=== PATIENT | female | born 1980 | race African-American/Black ===

== ENCOUNTER 2020-10-31 15:33 | Emergency (ER) | payer SELFPAY ==
[~2020-10-31] VITALS: Ht 170.2 cm; Wt 111.9 kg
[2020-10-31] MEDS: DEXAMETHASONE SOD PHOS 20 MG/5 ML VIAL. PO ONE (16:22)
--- NOTE | 2020-10-31 16:26 | ED.ADGEN ---
Past Medical History Past Medical History: No Pertinent History Past Surgical History: No Surgical History Smoking Status: Current Some Day Smoker Alcohol Use: Occasionally Drug Use: None General Adult EDM: Chief Complaint: SKIN PROBLEM HPI: HPI: Patient is a 39 year old AA female who presents emergency department with complaints of itching and hives all over since yesterday. She was seen at urgent care yesterday and prescribed a 3-day dose of steroids. Patient reports she is taken prednisone and Benadryl today but her hives persist. Initially the patient thought it was due to some new laundry detergent that she used, patient states today she is wearing clothes that have not been washed in the new laundry detergent and she continues to have problems. She denies any difficulty swallowing, sore throat, cough, shortness of breath, sneezing, wheezing, nausea, vomiting, diarrhea, cough, body aches, fatigue, or fever. Patient states she had been taking a seamoss supplement for weight loss for about the last week and questions if that could be causing her hives. She currently denies any pain. Review of Systems: Review of Systems: Complete ROS is negative unless otherwise noted in HPI. Allergies: Allergies: Allergies Coded Allergies Type Severity Reaction Last Updated Verified Iodinated Contrast Media Allergy Intermediate hives 10/31/20 Yes latex Allergy Intermediate hives 10/31/20 Yes Physical Exam: PE: See Above Constitutional: Well developed, well nourished, no acute distress, non-toxic appearance, obese. [] HENT: Normocephalic, atraumatic, bilateral external ears normal, nose normal. [] Eyes: PERRLA, EOMI, conjunctiva normal, no discharge. [] Neck: Normal range of motion, no stridor. [] Cardiovascular:Heart rate regular rhythm Lungs & Thorax: Respirations even and unlabored, no retractions, no respiratory distress, lungs CTA, no wheezing Skin: Warm, dry; scattered patches of slightly elevated, itchy, red skin consistent with urticaria to patient's extremities x4, and trunk; no rash on patient's face Extremities: No cyanosis, ROM intact, no edema. [] Neurologic: Alert and oriented X 3, no focal deficits noted. [] Psychologic: Affect normal, judgement normal, mood normal. []] Current Patient Data: Vital Signs: Vital Signs Date Time Temp Pulse Resp B/P (MAP) Pulse Ox O2 Delivery O2 Flow Rate FiO2 10/31/20 15:40 98.3 102 18 161/88 (112) 99 Room Air 98.3 EKG: EKG: [] Heart Score: C/O Chest Pain: No Risk Scores: Score 0 - 3: 2.5% MACE over next 6 weeks - Discharge Home Score 4 - 6: 20.3% MACE over next 6 weeks - Admit for Clinical Observation Score 7 - 10: 72.7% MACE over next 6 weeks - Early Invasive Strategies Radiology/Procedures: Radiology/Procedures: [] Course & Med Decision Making: Course & Med Decision Making Pertinent Labs and Imaging studies reviewed. (See chart for details) [] Dragon Disclaimer: Dragon Disclaimer: This electronic medical record was generated, in whole or in part, using a voice recognition dictation system. Departure Departure Impression: Primary Impression: Acute urticaria Disposition: HOME / SELF CARE / HOMELESS Condition: STABLE Referrals: NO PCP (PCP) Patient Instructions: Guilherme, [id number] Additional Instructions: Stop taking the sea dillon supplement that you have been taking for weight loss. Recommend that you purchase an [id number] antihistamine such as Zyrtec (cetirizine), Kylie (fexofenadine), or Claritin (loratadine) at night. Finish the steroid that was prescribed at urgent care as instructed. You can take Benadryl every 6 hours as needed for itching. Follow-up with your primary care doctor next week, return to the ER if your symptoms worsen or fever develops. IVANA GOODWIN APRN Oct 31, 2020 16:26
[2020-10-31 16:33] VITALS: BP 156/76
== END 2020-10-31 16:33 | disposition home or self-care (01) ==
LOC: ER 15:33
DX: L50.8 Other urticaria (principal); L29.9 Pruritus, unspecified; Z87.891 Personal history of nicotine dependence; Z91.040 Latex allergy status; Z91.041 Radiographic dye allergy status
CPT/HCPCS: 99283; J1100

== ENCOUNTER 2021-01-28 05:45 | Emergency (ER) | payer SELFPAY ==
[~2021-01-28] VITALS: Ht 170.2 cm; Wt 113.6 kg
[2021-01-28 06:54] VITALS: BP 137/79
[2021-01-28] MEDS ORDERED: CLIN300C9 PO (06:55)
[2021-01-28] MEDS ORDERED: OXYC1TAB15 PO (06:55)
--- NOTE | 2021-01-28 06:56 | ED.ADGEN ---
Past Medical History Past Medical History: No Pertinent History Past Surgical History: No Surgical History Smoking Status: Current Some Day Smoker Alcohol Use: Occasionally Drug Use: None General Adult EDM: Chief Complaint: SKIN RASH/ABSCESS HPI: HPI: Patient is a 40 year old [f__sex] who presents with [] Review of Systems: Review of Systems: Constitutional: Denies fever or chills. [] Eyes: Denies change in visual acuity. [] HENT: Denies nasal congestion or sore throat. [] Respiratory: Denies cough or shortness of breath. [] Cardiovascular: Denies chest pain or edema. [] GI: Denies abdominal pain, nausea, vomiting, bloody stools or diarrhea. [] : Denies dysuria. [] Musculoskeletal: Denies back pain or joint pain. [] Integument: Denies rash. [] Neurologic: Denies headache, focal weakness or sensory changes. [] Endocrine: Denies polyuria or polydipsia. [] Lymphatic: Denies swollen glands. [] Psychiatric: Denies depression or anxiety. [] Current Medications: Current Medications Medications (Trade) Dose Ordered Sig/Taya Start Time Stop Time Status Last Admin Dose Admin Clindamycin HCl (Cleocin) 300 mg 1X ONCE 01/28/21 07:00 01/28/21 07:01 UNV Oxycodone/ Acetaminophen (Percocet 5/325) 1 tab 1X ONCE 01/28/21 07:00 01/28/21 07:01 UNV Allergies: Allergies: Allergies Coded Allergies Type Severity Reaction Last Updated Verified Iodinated Contrast Media Allergy Intermediate hives 10/31/20 Yes latex Allergy Intermediate hives 10/31/20 Yes Physical Exam: PE: Constitutional: Well developed, well nourished, no acute distress, non-toxic appearance. [] HENT: Normocephalic, atraumatic, bilateral external ears normal, oropharynx moist, no oral exudates, nose normal. [] Eyes: PERRLA, EOMI, conjunctiva normal, no discharge. [] Neck: Normal range of motion, no tenderness, supple, no stridor. [] Cardiovascular:Heart rate regular rhythm, no murmur [] Lungs & Thorax: Bilateral breath sounds clear to auscultation [] Abdomen: Bowel sounds normal, soft, no tenderness, no masses, no pulsatile masses. [] Skin: Warm, dry, no erythema, no rash. [] Back: No tenderness, no CVA tenderness. [] Extremities: No tenderness, no cyanosis, no clubbing, ROM intact, no edema. [] Neurologic: Alert and oriented X 3, normal motor function, normal sensory f unction, no focal deficits noted. [] Psychologic: Affect normal, judgement normal, mood normal. [] Current Patient Data: Vital Signs: Vital Signs Date Time Temp Pulse Resp B/P (MAP) Pulse Ox O2 Delivery O2 Flow Rate FiO2 01/28/21 05:50 98.7 95 18 167/85 (102) 100 Room Air 98.7 EKG: EKG: [] Heart Score: Risk Factors: Risk Factors: DM, Current or recent (<one month) smoker, HTN, HLP, family history of CAD, obesity. Risk Scores: Score 0 - 3: 2.5% MACE over next 6 weeks - Discharge Home Score 4 - 6: 20.3% MACE over next 6 weeks - Admit for Clinical Observation Score 7 - 10: 72.7% MACE over next 6 weeks - Early Invasive Strategies Radiology/Procedures: Radiology/Procedures: [] Course & Med Decision Making: Course & Med Decision Making Pertinent Labs and Imaging studies reviewed. (See chart for details) [] Dragon Disclaimer: Dragon Disclaimer: This electronic medical record was generated, in whole or in part, using a voice recognition dictation system. Departure Departure Impression: Primary Impression: Cellulitis of labia majora Disposition: HOME / SELF CARE / HOMELESS Condition: STABLE Referrals: NO PCP (PCP) Patient Instructions: Abscess, Perineal, Cellulitis Scripts Oxycodone/Apap 5-325 (PERCOCET 5-325 MG TABLET ) 1 Each Tablet 1 TAB PO PRN Q6HRS PRN for PAIN, #8 TAB 0 Refills Prov: CRISTIAN BOOGIE MD 01/28/21 Clindamycin Hcl (CLINDAMYCIN HCL) 300 Mg Capsule 1 CAP PO TID, #21 CAP Prov: CRISTIAN BOOGIE MD 01/28/21 CRISTIAN BOOGIE MD Jan 28, 2021 06:56
[2021-01-28] MEDS ORDERED: oxyCODONE/APAP 5/325 1 TAB TABLET PO ONE (07:30)
[2021-01-28] MEDS ORDERED: CLINDAMYCIN HCL 150 MG CAPSULE. PO ONE (07:30)
== END 2021-01-28 07:11 | disposition home or self-care (01) ==
LOC: ER 05:45
DX: N76.2 Acute vulvitis (principal); F17.200 Nicotine dependence, unspecified, uncomplicated; Z91.041 Radiographic dye allergy status; Z91.040 Latex allergy status
CPT/HCPCS: 99283

== ENCOUNTER 2021-05-08 18:48 | Emergency (ER) | payer BC ==
[~2021-05-08] VITALS: Ht 170.2 cm; Wt 107.0 kg
[~2021-05-08 18:48] MED LIST: CLIN-94 PO; OXYC1TAB15 PO
[2021-05-08 19:59] LABS: BILIRUBIN,URINE NEGATIVE (NEG); CLARITY,URINE CLEAR; COLOR,URINE YELLOW; NITRITE,URINE NEGATIVE (NEG); PH,URINE 5.5 (<5.0-8.0); PROTEIN,URINE NEGATIVE (NEG-TRACE); UROBILINOGEN,URINE 0.2 mg/dL (0.2 mg/dL)
--- NOTE | 2021-05-08 20:04 | RAD ---
EXAMINATION: CT LUMBAR SPINE WO, 05/08/2021 7:30 PM CLINICAL INDICATION: Pain COMPARISON: None available TECHNIQUE: Helical CT imaging performed of the lumbar spine without the use of intravenous contrast. Sagittal and coronal reformats were obtained. One or more of the following individualized dose reduction techniques were utilized for this examinat ion: 1. Automated exposure control 2. Adjustment of the mA and/or kV according to patient size 3. Use of iterative reconstruction technique. FINDINGS: There 5 nonrib-bearing lumbar vertebral bodies. No acute fracture. Alignment is normal. Dis c spaces are maintained. There is no evidence of canal or foraminal narrowing. There is no significan t facet arthrosis. There are calcified splenic granulomas. There is a 1.6 cm exophytic hypodense lesion in the posterior left kidney with greater than fluid density, Hounsfield units 36. IMPRESSION: 1. No acute abnormality of the lumbar spine. 2. 1.6 cm hypodense lesion in the left kidney with greater than simple fluid density. This could be a proteinaceous or complex cyst. Ultrasound could be obtained to confirm and exclude a solid mass. Electronically signed by: Monica Frye MD (05/08/2021 8:02 PM) [id number]
[2021-05-08 20:06] LABS: BACTERIA,URINE FEW /HPF (0-FEW); RBC,URINE 0 /HPF (0-2); WBC,URINE OCC /HPF (0-4)
[2021-05-08] MEDS ORDERED: CYCL10TA19 PO (20:41)
[2021-05-08] MEDS ORDERED: HYDR-2761 PO (20:41)
--- NOTE | 2021-05-08 20:43 | PHYS DOC ---
Past Medical History Past Medical History: No Pertinent History Past Surgical History: No Surgical History Smoking Status: Current Some Day Smoker Alcohol Use: Occasionally Drug Use: None General Adult EDM: Chief Complaint: FLANK PAIN HPI: HPI: Patient is a 40 year old female with no significant medical history who presents to the ED today complaining of 6 out of 10 sharp intermittent left flank pain radiating up and down her back, symptoms began today. Patient states she has had similar symptoms before with pain radiating to the left lower extremity. Patient denies any injuries. Denies any loss of bowel/bladder function. Denies any urgency, frequency and dysuria. States the pain is worse on laying on her back. Describes the pain as sharp and intermittent. Review of Systems: Review of Systems: Constitutional: Denies fever or chills. [] Eyes: Denies change in visual acuity. [] HENT: Denies nasal congestion or sore throat. [] Respiratory: Denies cough or shortness of breath. [] Cardiovascular: Denies chest pain or edema. [] GI: Denies abdominal pain, nausea, vomiting, bloody stools or diarrhea. [] : Denies dysuria. [] Musculoskeletal: Reports left flank pain Integument: Denies rash. [] Neurologic: Denies headache, focal weakness or sensory changes. [] Psychiatric: Denies depression or anxiety. [] Heart Score: C/O Chest Pain: N/A Risk Factors: Risk Factors: DM, Current or recent (<one month) smoker, HTN, HLP, family history of CAD, obesity. Risk Scores: Score 0 - 3: 2.5% MACE over next 6 weeks - Discharge Home Score 4 - 6: 20.3% MACE over next 6 weeks - Admit for Clinical Observation Score 7 - 10: 72.7% MACE over next 6 weeks - Early Invasive Strategies Allergies: Allergies: Allergies Coded Allergies Type Severity Reaction Last Updated Verified Iodinated Contrast Media Allergy Intermediate hives 10/31/20 Yes latex Allergy Intermediate hives 10/31/20 Yes Physical Exam: PE: Constitutional: Well developed, well nourished, no acute distress, non-toxic appearance. [] HENT: Normocephalic, atraumatic, bilateral external ears normal, oropharynx moist, no oral exudates, nose normal. [] Eyes: PERRLA, EOMI, conjunctiva normal, no discharge. [] Neck: Normal range of motion, no tenderness, supple, no stridor. [] Cardiovascular:Heart rate regular rhythm, no murmur [] Lungs & Thorax: Bilateral breath sounds clear to auscultation [] Abdomen: Bowel sounds normal, soft, no tenderness, no masses, no pulsatile masses. [] Skin: Warm, dry, no erythema, no rash. [] Back: No tenderness, slight left CVA tenderness. [] Extremities: No tenderness, no cyanosis, no clubbing, ROM intact, no edema. [] Neurologic: Alert and oriented X 3, normal motor function, normal sensory function, no focal deficits noted. [] Psychologic: Affect normal, judgement normal, mood normal. [] Current Patient Data: Labs: Laboratory Tests Test 05/08/21 19:45 Urine Collection Type Unknown Urine Color Yellow Urine Clarity Clear Urine pH 5.5 (<5.0-8.0) Urine Specific [place] 1.025 (1.000-1.030) Urine Protein Negative mg/dL (NEG-TRACE) Urine Glucose (UA) Negative mg/dL (NEG) Urine Ketones (Stick) Negative mg/dL (NEG) Urine Blood Negative (NEG) Urine Nitrite Negative (NEG) Urine Bilirubin Negative (NEG) Urine Urobilinogen Dipstick 0.2 mg/dL (0.2 mg/dL) Urine Leukocyte Esterase Negative (NEG) Urine RBC 0 /HPF (0-2) Urine WBC Occ /HPF (0-4) Urine Squamous Epithelial Cells Mod /LPF Urine Bacteria Few /HPF (0-FEW) Urine Mucus Mod /LPF Vital Signs: Vital Signs Date Time Temp Pulse Resp B/P (MAP) Pulse Ox O2 Delivery O2 Flow Rate FiO2 05/08/21 19:18 98.6 77 18 162/79 (106) 100 Room Air 98.6 EKG: EKG: [] Radiology/Procedures: Radiology/Procedures: []PROCEDURE: CT LUMBAR SPINE WO CONTRAST EXAMINATION: CT LUMBAR SPINE WO, 05/08/2021 7:30 PM CLINICAL INDICATION: Pain COMPARISON: None available TECHNIQUE: Helical CT imaging performed of the lumbar spine without the use of intravenous contrast. Sagittal and coronal reformats were obtained. One or more of the following individualized dose reduction techniques were utilized for this examination: 1. Automated exposure control 2. Adjustment of the mA and/or kV according to patient size 3. Use of iterative reconstruction technique. FINDINGS: There 5 nonrib-bearing lumbar vertebral bodies. No acute fracture. Alignment is normal. Disc spaces are maintained. There is no evidence of canal or foraminal narrowing. There is no significant facet arthrosis. There are calcified splenic granulomas. There is a 1.6 cm exophytic hypodense lesion in the posterior left kidney with greater than fluid density, Hounsfield units 36. IMPRESSION: 1. No acute abnormality of the lumbar spine. 2. 1.6 cm hypodense lesion in the left kidney with greater than simple fluid density. This could be a proteinaceous or complex cyst. Ultrasound could be obtained to confirm and exclude a solid mass. Electronically signed by: Monica Frye MD (05/08/2021 8:02 PM) [id number] DICTATED and SIGNED BY: MONICA FRYE MD DATE: 05/08/21 [id number] 0 Course & Med Decision Making: Course & Med Decision Making Pertinent Labs and Imaging studies reviewed. (See chart for details) This a 40-year-old female patient presenting to the ED today complaining of left lung pain radiating to her lower back and upper back, symptoms began today tho ugh she has had back pain radiating to the left lower extremity that feels similar to todays pain. CT of the lumbar spine was negative for any acute findings, noted for 1.6 cm hypodense lesion in the left kidney with greater than simple fluid density. This could be a proteinaceous or complex cyst. Ultrasound could be obtained to confirm and exclude a solid mass. Recommended patient follows up with the PCP as an outpatient for an ultrasound. UA negative for infection or blood. Discharge to home [place] Disclaimer: [place] Disclaimer: This electronic medical record was generated, in whole or in part, using a voice recognition dictation system. Departure Departure Impression: Primary Impression: Left kidney mass Additional Impression: Back pain Qualified Codes: M54.42 - Lumbago with sciatica, left side Disposition: 01 HOME / SELF CARE / HOMELESS Condition: STABLE Referrals: NO PCP (PCP) Follow-up with your primary care doctor for an outpatient ultrasound or a urologist of your choice Patient Instructions: Back Pain, Adult, [id number] Additional Instructions: You were evaluated in the emergency room for back pain and noted to have a lesion in your left kidney. Please contact your primary care doctor and follow- up with them for an outpatient ultrasound Scripts Cyclobenzaprine Hcl (CYCLOBENZAPRINE HCL) 10 Mg Tablet 1 TAB PO TID, #30 TAB Prov: ALISA RODRIGUEZ APRN 05/08/21 Hydrocodone Bit/Acetaminophen (HYDROCODONE-APAP 5-325 ) 1 Tab Tablet 1 TAB PO PRN Q6HRS PRN for PAIN, #8 TAB 0 Refills Prov: ALISA RODRIGUEZ APRN 05/08/21 ALISA RODRIGUEZ APRN May 08, 2021 20:43
[2021-05-08 20:50] VITALS: BP 146/74
== END 2021-05-08 20:55 | disposition home or self-care (01) ==
LOC: ER 18:48
DX: N28.89 Other specified disorders of kidney and ureter (principal); M54.42 Lumbago with sciatica, left side; F17.200 Nicotine dependence, unspecified, uncomplicated; Z91.041 Radiographic dye allergy status; Z91.040 Latex allergy status
CPT/HCPCS: 72131; 81001; 99284-25